=== PATIENT | female | born 1965 | race Caucasian/White ===

== ENCOUNTER → 2023-05-20 | Outpatient (CLI) | payer MEDICARE, OTHER ==
--- NOTE | 2023-05-20 11:20 | XR ---
EXAMINATION TYPE: XR cervical spine comp DATE OF EXAM: 05/20/2023 COMPARISON: NONE HISTORY: Neck pain TECHNIQUE: Four views are submitted. FINDINGS: The odontoid is intact. There are no compression deformities. The prevertebral soft tissue structur es are within normal limits. Postsurgical changes compatible ADC and C5-C7. Hypertrophic and mild de generative disc disease C3-4 and C4 limits. Posterior calcification or ossification in soft tissues T 6. Foraminal encroachment bilaterally at C5-6 and C6-C7. IMPRESSION: 1. Postoperative changes with bilateral foraminal protrusions at C5-6 and C6-C7. If symptoms are wors ening consider follow-up CT or MRI.
== END | disposition home or self-care (01) ==
LOC: RADXRMAIN 10:38
PROVIDERS: ATTEND Family Medicine
DX: M50.222 Other cervical disc displacement at C5-C6 level (principal); Z98.890 Other specified postprocedural states
CPT/HCPCS: 72050

== ENCOUNTER → 2023-06-10 | Outpatient (CLI) | payer MEDICARE, OTHER | END | disposition home or self-care (01) | LOC: LABWHC1 08:25 | PROVIDERS: ATTEND Family Medicine | DX: Z13.6 Encounter for screening for cardiovascular disorders (principal) | CPT/HCPCS: 93005 ==

== ENCOUNTER → 2023-06-10 | Outpatient (CLI) | payer MEDICARE, OTHER ==
--- NOTE | 2023-06-10 12:59 | US ---
EXAMINATION TYPE: US thyroid st tissue head/neck DATE OF EXAM: 06/10/2023 COMPARISON: NONE CLINICAL INDICATION: Female, 58 years old with history of R00.2 PALPITATIONS; neck pain and stiffness GLAND SIZE: Right Lobe: 4.4x1.7x1.8 cm Overall Parenchyma: homogeneous Left Lobe: 4.7x2.0x1.6 cm Overall Parenchyma: homogeneous Isthmus Thickness: 0.3 cm NODULES RIGHT: # of nodules measured on right: 0 LEFT: # of nodules measured on left: 0 ISTHMUS: # of nodules measured in the isthmus: 0 Bilateral neck scanned, no evidence of lymphadenopathy. Leasing Property Manager notes: No discrete abnormality observed IMPRESSION: No specific sonographic abnormality. Measurements as above.
== END | disposition home or self-care (01) ==
LOC: RADUSWWP 10:24
PROVIDERS: ATTEND Family Medicine
DX: R00.2 Palpitations (principal); M54.2 Cervicalgia
CPT/HCPCS: 76536